=== PATIENT | male | born 1980 | race African-American/Black ===

== ENCOUNTER 2019-11-12 10:36 | Inpatient (IN) | payer SELFPAY ==
[2019-11-12] VITALS (12 sets, daily range): BP systolic 125–166; BP diastolic 64–106
[~2019-11-12] VITALS: Ht 182.9 cm; Wt 95.3 kg
--- NOTE | 2019-11-12 10:39 | NUR ---
BIBRA 58 FROM HOME, HIGH READING ON THE BS MACHINE, NON-COMPLIANT ON MEDS. TO ER BED 11, HOOKED TO [facility] [employer] DEAL[facility], NOTED TACHYCARDIC AND ELEVATED BP, CHANGED TO HOSP GOWN, PROVIDED W WARM BLANKET, PATIENT AOx4 , BREATHING EVEN AND UNLABORED. DR OLIVEIRA AAT BEDSIDE
--- NOTE | 2019-11-12 10:41 | NUR ---
ACCUCHECK AT > 600 MG/DL. MADE AWARE
[2019-11-12] MEDS ORDERED: IV NS 0.9% 1,000 ML IV PRN ×3 (10:58→14:30)
[2019-11-12] MEDS ORDERED: INSULIN ASPART/LISPRO 100 UNIT/ML CARTRIDGE SQ STA (10:58)
[2019-11-12] MEDS ORDERED: IV NS 0.9% 1,000 ML BAG IV ONE (11:00)
--- NOTE | 2019-11-12 11:04 | NUR ---
BLOOD DRAWN AND SENT TO LAB
--- NOTE | 2019-11-12 11:05 | NUR ---
CALLED NURSING CIRCUS SUPERVISOR FOR ICU BED.
[2019-11-12 11:09] LABS: BASOPHILS # (AUTO) 0.1 /CMM (0.0-0.2); BASOPHILS % (AUTO) 0.4 % (0.0-2.0); HEMATOCRIT 51 % (39-51); HEMOGLOBIN 14.9 g/dL (13.5-17.5); LYMPHOCYTES # (AUTO) 1.3 /CMM (0.8-4.8); LYMPHOCYTES % (AUTO) 8.4 % (20.0-44.0); MEAN CORPUSCULAR HGB CONC 29 g/dl (31.0-36.0); MEAN CORPUSCULAR VOLUME 86 fL (80-96); MONOCYTES # (AUTO) 1.3 /CMM (0.1-1.30); MONOCYTES % (AUTO) 8.3 % (2.0-12.0); NEUTROPHILS # (AUTO) 13.3 /CMM (1.8-8.9); NEUTROPHILS % (AUTO) 82.9 % (43.0-81.0); PLATELET COUNT (AUTO) 300 /CMM (150-450); RED BLOOD CELL COUNT(AUTO) 5.97 MIL/uL (4.5-6.0)
[2019-11-12] MEDS ORDERED: INSULIN REGULAR, HUMAN 100 UNIT/ML 10 ML VIAL ONE (11:11)
[2019-11-12] MEDS ORDERED: [UNRECOGNIZED DRUG - REMARK] SQ (11:17)
[2019-11-12] MEDS ORDERED: METF-440 PO (11:17)
[2019-11-12 11:22] LABS: ALANINE AMINOTRANSFERASE 25 U/L (12-78); ALBUMIN 4.2 g/dL (3.4-5.0); ALKALINE PHOSPHATASE 192 U/L (46-116); ASPARTATE AMINOTRANSFERASE 10 U/L (15-37); BILIRUBIN,DIRECT 0.1 mg/dL (0.0-0.2); BILIRUBIN,TOTAL 0.5 mg/dL (0.2-1.0); CHLORIDE 92 mmol/L (98-107); CREATININE 2.7 mg/dL (0.6-1.3); LIPASE 184 U/L (73-393); MAGNESIUM 2.8 mg/dL (1.8-2.4); POTASSIUM 4.9 mmol/L (3.5-5.1); SODIUM SERUM 136 mmol/L (136-145); UREA NITROGEN, BLOOD 26 mg/dL (7-18)
[2019-11-12 11:26] LABS: CARBON DIOXIDE 6 mmol/L (21-32); GLUCOSE 779 mg/dL (74-106); PHOSPHORUS 9.2 mg/dL (2.5-4.9)
[2019-11-12] MEDS ORDERED: INSULIN REGULAR, HUMAN 100 UNIT in IV NS 0.9% 99 ML IV PRN ×2 (11:30)
[2019-11-12] MEDS ORDERED: INSULIN REGULAR, HUMAN 100 UNIT/ML 10 ML VIAL SQ ONE (11:30)
--- NOTE | 2019-11-12 11:30 | NUR ---
REPORT GIVEN TO NEHEMIAH OF ICU
--- NOTE | 2019-11-12 11:31 | NUR ---
CALLED [facility], PAGED CAROLYNE CAMPOS
[2019-11-12 11:33] LABS: ABG BASE EXCESS -26.6 mmol/L; ABG OXYGEN SATURATION 97.8 % (92.0-98.5); ABG PCO2 12.8 mmHg (35.0-45.0); ABG PH 6.993 (7.350-7.450); ABG PO2 150.9 mmHg (75.0-100.0); COHb 0.2 % (0.5-1.5); MetHb 0.5 % (0.0-1.5); O2Hb 97.1 % (94.0-97.0); SITE, ABG Right Radial; VENT MODE, BG RA
--- NOTE | 2019-11-12 11:36 | NUR ---
RT AT BEDSIDE FOR ABG
[2019-11-12 11:59] LABS: APPEARANCE,URINE Clear (CLEAR); BILIRUBIN,URINE SMALL (NEGATIVE); BLOOD, URINE Moderate Ery/uL (NEGATIVE); COLOR,URINE Yellow (YELLOW); KETONES,URINE 80 (NEGATIVE); LEUKOCYTE ESTERASE ,URINE Negative (NEGATIVE); NITRITE, URINE Negative (NEGATIVE); PROTEIN,URINE 100 mg/dl (NEGATIVE); UGLUCOSE 500 MG/DL mg/dL (NEGATIVE); UROBILINOGEN,URINE 0.2 EU/dL (0.2)
[2019-11-12] MEDS ORDERED: Z GUARD REMEDY 2 OZ OINT TP PRN (12:00)
[2019-11-12] MEDS ORDERED: ONDANSETRON HCL/PF 4 MG/2 ML VIAL IVP PRN (12:00)
[2019-11-12] MEDS ORDERED: POTASSIUM CHLORIDE IV PRN (12:00)
[2019-11-12] MEDS ORDERED: LR IV PRN (12:00)
[2019-11-12 12:08] LABS: BACTERIA,URINE Few /HPF (None Seen); RBC,URINE 0-2 /HPF (0-2); SQUAMOUS EPITHELIAL CELL,UR Few /HPF (None Seen); WBC,URINE 0-2 /HPF (0-3)
[2019-11-12 12:46] LABS: EOSINOPHILS % (AUTO) 0.7 % (0.0-6.0); HEMATOCRIT 50 % (39-51); HEMOGLOBIN 14.5 g/dL (13.5-17.5); LYMPHOCYTES # (AUTO) 1.8 /CMM (0.8-4.8); LYMPHOCYTES % (AUTO) 10.3 % (20.0-44.0); MEAN CORPUSCULAR HGB CONC 29 g/dl (31.0-36.0); MEAN CORPUSCULAR VOLUME 84 fL (80-96); MONOCYTES # (AUTO) 6.4 /CMM (0.1-1.30); MONOCYTES % (AUTO) 37.2 % (2.0-12.0); NEUTROPHILS # (AUTO) 8.9 /CMM (1.8-8.9); NEUTROPHILS % (AUTO) 51.8 % (43.0-81.0); PLATELET COUNT (AUTO) 254 /CMM (150-450); RED BLOOD CELL COUNT(AUTO) 5.89 MIL/uL (4.5-6.0); WHITE BLOOD COUNT (AUTO) 17.1 K/uL (4.3-11.0)
[2019-11-12 13:00] LABS: CALCIUM, SERUM 8.9 mg/dL (8.5-10.1); CREATININE 2.3 mg/dL (0.6-1.3); MAGNESIUM 2.5 mg/dL (1.8-2.4); PHOSPHORUS 6.7 mg/dL (2.5-4.9); POTASSIUM 5.2 mmol/L (3.5-5.1)
[2019-11-12] MEDS: BLOOD SUGAR DIAGNOSTIC 1 EACH STRIP IN SCH ×10 (14:14→23:00)
[2019-11-12] MEDS ORDERED: IV NS 0.9% 1,000 ML IV ONE (14:30)
[2019-11-12] MEDS: ENOXAPARIN SODIUM 40 MG/0.4 ML DISP.SYRIN SQ SCH (14:33)
--- NOTE | 2019-11-12 14:40 | NUR ---
RN NOTE 1225: Admitted 39y/o male from ER for DKA. On insulin drip @ 9units/hr at this time. A/Ox4. With PIVs intact. On LR with 30K at 250. No N/V at this time. Verbalized feeling restless, wants ot have a rest. Skin assessment done, intact. Informed patient to remain NPO. 1300: Noted with SBP 160's, Dr. Alfaro aware, received 3L bolus in ER per report. No new order at this time. Checked BS, >600, BMP for lab glucose, 667, aware, followed insulin drip order. To use formula BG x 2 / 100. See IV spreadsheet for titration. 1430: ordered to give 2 more liters NS bolus, aware for the latest BMP result and last BG 467, on 10 U/hr insulin now.
[2019-11-12 14:56] LABS: CALCIUM, SERUM 8.8 mg/dL (8.5-10.1); CREATININE 2.1 mg/dL (0.6-1.3); MAGNESIUM 2.5 mg/dL (1.8-2.4); PHOSPHORUS 3.8 mg/dL (2.5-4.9); POTASSIUM 5.3 mmol/L (3.5-5.1)
[2019-11-12 15:47] LABS: BASOPHILS # (AUTO) 0.1 /CMM (0.0-0.2); BASOPHILS % (AUTO) 0.8 % (0.0-2.0); HEMATOCRIT 47 % (39-51); HEMOGLOBIN 14.2 g/dL (13.5-17.5); LYMPHOCYTES # (AUTO) 0.9 /CMM (0.8-4.8); LYMPHOCYTES % (AUTO) 5.4 % (20.0-44.0); MEAN CORPUSCULAR HGB CONC 30 g/dl (31.0-36.0); MEAN CORPUSCULAR VOLUME 81 fL (80-96); MONOCYTES % (AUTO) 12.5 % (2.0-12.0); NEUTROPHILS % (AUTO) 81.3 % (43.0-81.0); PLATELET COUNT (AUTO) 233 /CMM (150-450); RED BLOOD CELL COUNT(AUTO) 5.84 MIL/uL (4.5-6.0)
[2019-11-12 17:31] LABS: HEMATOCRIT 43 % (39-51); HEMOGLOBIN 13.1 g/dL (13.5-17.5); MEAN CORPUSCULAR HGB CONC 31 g/dl (31.0-36.0); WHITE BLOOD COUNT (AUTO) 13.6 K/uL (4.3-11.0)
[2019-11-12 17:39] LABS: BASOPHILS # (AUTO) 0.1 /CMM (0.0-0.2); BASOPHILS % (AUTO) 0.8 % (0.0-2.0); CREATININE 1.8 mg/dL (0.6-1.3); LYMPHOCYTES # (AUTO) 1.9 /CMM (0.8-4.8); LYMPHOCYTES % (AUTO) 14.3 % (20.0-44.0); MEAN CORPUSCULAR VOLUME 80 fL (80-96); MONOCYTES # (AUTO) 1.6 /CMM (0.1-1.30); MONOCYTES % (AUTO) 11.6 % (2.0-12.0); NEUTROPHILS # (AUTO) 9.9 /CMM (1.8-8.9); NEUTROPHILS % (AUTO) 73.3 % (43.0-81.0); PLATELET COUNT (AUTO) 207 /CMM (150-450); POTASSIUM 4.4 mmol/L (3.5-5.1); RED BLOOD CELL COUNT(AUTO) 5.37 MIL/uL (4.5-6.0)
[2019-11-12 17:45] LABS: MAGNESIUM 2.2 mg/dL (1.8-2.4); PHOSPHORUS 1.9 mg/dL (2.5-4.9)
--- NOTE | 2019-11-12 18:17 | NUR ---
RN NOTE Still on insulin drip @ 5.4 U/hr, last BG 216(using formula of BGx2.5/100), AG 29. Patient A/Ox4. No N/V. Kept clean, warm and dry. Needs attended.
[2019-11-12 18:50] LABS: BASOPHILS # (AUTO) 0.1 /CMM (0.0-0.2); BASOPHILS % (AUTO) 0.7 % (0.0-2.0); EOSINOPHILS % (AUTO) 0.1 % (0.0-6.0); LYMPHOCYTES # (AUTO) 1.8 /CMM (0.8-4.8); LYMPHOCYTES % (AUTO) 13.9 % (20.0-44.0); MEAN CORPUSCULAR HGB CONC 31 g/dl (31.0-36.0); MEAN CORPUSCULAR VOLUME 81 fL (80-96); MONOCYTES # (AUTO) 1.7 /CMM (0.1-1.30); MONOCYTES % (AUTO) 12.8 % (2.0-12.0); NEUTROPHILS # (AUTO) 9.5 /CMM (1.8-8.9); NEUTROPHILS % (AUTO) 72.5 % (43.0-81.0); PLATELET COUNT (AUTO) 198 /CMM (150-450); RED BLOOD CELL COUNT(AUTO) 5.44 MIL/uL (4.5-6.0); WHITE BLOOD COUNT (AUTO) 13.1 K/uL (4.3-11.0)
[2019-11-12 19:02] LABS: CALCIUM, SERUM 8.2 mg/dL (8.5-10.1); CREATININE 1.7 mg/dL (0.6-1.3); MAGNESIUM 2.2 mg/dL (1.8-2.4); PHOSPHORUS 1.5 mg/dL (2.5-4.9); POTASSIUM 4.2 mmol/L (3.5-5.1)
[2019-11-12] MEDS: INSULIN REGULAR, HUMAN 100 UNIT in IV NS 0.9% 99 ML IV PRN ×4 (20:02→21:08)
[2019-11-12 20:53] LABS: HEMOGLOBIN 13.4 g/dL (13.5-17.5)
[2019-11-12 20:54] LABS: HEMATOCRIT 44 % (39-51)
[2019-11-12 20:57] LABS: CALCIUM, SERUM 8.1 mg/dL (8.5-10.1); CREATININE 1.7 mg/dL (0.6-1.3); MAGNESIUM 2.1 mg/dL (1.8-2.4); POTASSIUM 4.1 mmol/L (3.5-5.1)
--- NOTE | 2019-11-12 21:00 | NUR ---
RN NOTE Still on insulin drip @ 4.1 U/hr, last BG 162(using formula of BGx2.5/100). Patient A/Ox4. No complaint of pain or discomfort. In no apparent distress. Will continue to monitor.
[2019-11-12 21:31] LABS: BASOPHILS # (AUTO) 0.1 /CMM (0.0-0.2); BASOPHILS % (AUTO) 0.6 % (0.0-2.0); HEMATOCRIT 43 % (39-51); HEMOGLOBIN 13.3 g/dL (13.5-17.5); LYMPHOCYTES # (AUTO) 1.7 /CMM (0.8-4.8); LYMPHOCYTES % (AUTO) 15.9 % (20.0-44.0); MEAN CORPUSCULAR HGB CONC 31 g/dl (31.0-36.0); MEAN CORPUSCULAR VOLUME 80 fL (80-96); MONOCYTES # (AUTO) 1.2 /CMM (0.1-1.30); MONOCYTES % (AUTO) 11.2 % (2.0-12.0); NEUTROPHILS # (AUTO) 7.8 /CMM (1.8-8.9); NEUTROPHILS % (AUTO) 72.3 % (43.0-81.0); PLATELET COUNT (AUTO) 211 /CMM (150-450); RED BLOOD CELL COUNT(AUTO) 5.32 MIL/uL (4.5-6.0); WHITE BLOOD COUNT (AUTO) 10.9 K/uL (4.3-11.0)
[2019-11-12] MEDS ORDERED: IV 1/2NS 1000 ML 1,000 ML IV SCH ×2 (22:00→22:34)
[2019-11-12] MEDS: IV D5/0.45 NACL 1,000 ML IV SCH (22:01)
[2019-11-12 23:06] LABS: BASOPHILS # (AUTO) 0.2 /CMM (0.0-0.2); BASOPHILS % (AUTO) 1.9 % (0.0-2.0); HEMATOCRIT 40 % (39-51); HEMOGLOBIN 12.4 g/dL (13.5-17.5); LYMPHOCYTES # (AUTO) 1.7 /CMM (0.8-4.8); LYMPHOCYTES % (AUTO) 17.7 % (20.0-44.0); MEAN CORPUSCULAR HGB CONC 31 g/dl (31.0-36.0); MEAN CORPUSCULAR VOLUME 79 fL (80-96); MONOCYTES % (AUTO) 11.1 % (2.0-12.0); NEUTROPHILS # (AUTO) 6.5 /CMM (1.8-8.9); NEUTROPHILS % (AUTO) 69.3 % (43.0-81.0); PLATELET COUNT (AUTO) 186 /CMM (150-450); WHITE BLOOD COUNT (AUTO) 9.4 K/uL (4.3-11.0)
[2019-11-12 23:23] LABS: CREATININE 1.6 mg/dL (0.6-1.3); MAGNESIUM 2.1 mg/dL (1.8-2.4); PHOSPHORUS 1.1 mg/dL (2.5-4.9)
--- NOTE | 2019-11-12 23:46 | NUR ---
WELL REACTIVATOR OPERATOR. PT HAS PERIPHERAL LINE K PHOS EACH BAG CONTAIN 7.5MMMOL . OVER 3HRS. PHARMACY CAN MAKE AT THIS TIME 30 MMOL. NOTIFIED . IS OK.WITH 30MMMOL.
[2019-11-12] MEDS: POTASSIUM PHOSPHATE MM 7.5 MMOL in IV D5W 100 ML IV SCH (23:53)
[2019-11-13] VITALS (24 sets, daily range): BP systolic 110–157; BP diastolic 59–89
[2019-11-13] MEDS: BLOOD SUGAR DIAGNOSTIC 1 EACH STRIP IN SCH ×18 (00:05→20:54)
[2019-11-13] MEDS: ACETAMINOPHEN 325 MG TABLET PO PRN (00:48)
[2019-11-13 01:26] LABS: BASOPHILS # (AUTO) 0.1 /CMM (0.0-0.2); BASOPHILS % (AUTO) 0.8 % (0.0-2.0); HEMATOCRIT 42 % (39-51); LYMPHOCYTES # (AUTO) 1.3 /CMM (0.8-4.8); LYMPHOCYTES % (AUTO) 16.8 % (20.0-44.0); MEAN CORPUSCULAR HGB CONC 31 g/dl (31.0-36.0); MEAN CORPUSCULAR VOLUME 79 fL (80-96); MONOCYTES # (AUTO) 0.9 /CMM (0.1-1.30); MONOCYTES % (AUTO) 11.7 % (2.0-12.0); NEUTROPHILS # (AUTO) 5.6 /CMM (1.8-8.9); NEUTROPHILS % (AUTO) 70.7 % (43.0-81.0); PLATELET COUNT (AUTO) 180 /CMM (150-450); RED BLOOD CELL COUNT(AUTO) 5.32 MIL/uL (4.5-6.0); WHITE BLOOD COUNT (AUTO) 7.9 K/uL (4.3-11.0)
[2019-11-13 01:39] LABS: CALCIUM, SERUM 8.3 mg/dL (8.5-10.1); CREATININE 1.5 mg/dL (0.6-1.3); PHOSPHORUS 1.2 mg/dL (2.5-4.9); POTASSIUM 3.7 mmol/L (3.5-5.1)
[2019-11-13] MEDS: POTASSIUM PHOSPHATE MM 7.5 MMOL in IV D5W 100 ML IV SCH ×3 (02:27→08:27)
--- NOTE | 2019-11-13 03:24 | NUR ---
REHABILITATION INSPECTOR.AM CARE, ORAL CARE, BED BATH GIVEN. LINEN CHANGED. REMAINING SAME PT IN ROOM AIR. SAT 97%. NO ACUTE DISTRESS NOTED. AEROSPACE ENGINEER OFFICER ARMAMENT SHOWING NSR, IV RT AND LT HAND 18G. IVF D5 1/2NS 125ML/H INSULIN DRIP PER ACCU CHECK RESULT TITRATING. AFEBRILE. IV K PHOS RUNNING. WILL CONTINUE TO MONITOR VITALS.
[2019-11-13 04:26] LABS: BASOPHILS # (AUTO) 0.1 /CMM (0.0-0.2); BASOPHILS % (AUTO) 1.6 % (0.0-2.0); EOSINOPHILS % (AUTO) 0.1 % (0.0-6.0); HEMATOCRIT 36 % (39-51); HEMOGLOBIN 11.5 g/dL (13.5-17.5); LYMPHOCYTES # (AUTO) 1.5 /CMM (0.8-4.8); LYMPHOCYTES % (AUTO) 20.5 % (20.0-44.0); MEAN CORPUSCULAR HGB CONC 32 g/dl (31.0-36.0); MEAN CORPUSCULAR VOLUME 78 fL (80-96); MONOCYTES # (AUTO) 0.9 /CMM (0.1-1.30); MONOCYTES % (AUTO) 11.8 % (2.0-12.0); NEUTROPHILS # (AUTO) 4.7 /CMM (1.8-8.9); PLATELET COUNT (AUTO) 166 /CMM (150-450); RED BLOOD CELL COUNT(AUTO) 4.66 MIL/uL (4.5-6.0); WHITE BLOOD COUNT (AUTO) 7.2 K/uL (4.3-11.0)
[2019-11-13 04:40] LABS: CALCIUM, SERUM 8.3 mg/dL (8.5-10.1); CREATININE 1.4 mg/dL (0.6-1.3); PHOSPHORUS 1.4 mg/dL (2.5-4.9); POTASSIUM 3.4 mmol/L (3.5-5.1)
[2019-11-13 04:48] LABS: THYROID STIMULATING HORMONE 0.867 uIU/mL (0.358-3.74)
[2019-11-13] MEDS: IV D5/0.45 NACL 1,000 ML IV SCH (07:35)
[2019-11-13 08:21] LABS: CALCIUM, SERUM 8.3 mg/dL (8.5-10.1); CREATININE 1.4 mg/dL (0.6-1.3); POTASSIUM 3.4 mmol/L (3.5-5.1)
[2019-11-13] MEDS: ENOXAPARIN SODIUM 40 MG/0.4 ML DISP.SYRIN SQ SCH (08:21)
[2019-11-13 09:14] LABS: PHOSPHORUS 1.8 mg/dL (2.5-4.9)
[2019-11-13 09:45] LABS: ABG BASE EXCESS -5.8 mmol/L; ABG OXYGEN SATURATION 97.6 % (92.0-98.5); ABG PH 7.346 (7.350-7.450); AaDO2 7.6 mmHg; MetHb 0.2 % (0.0-1.5); O2Hb 96.4 % (94.0-97.0); SITE, ABG Right Radial; VENT MODE, BG ROOM AIR
--- NOTE | 2019-11-13 10:16 | NUR ---
RN NOTE 0715: Received patient resting in bed. A/Ox4. With 2 PIVs intact. On insulin drip, monitored BG q1hr, see IV spreadsheet. Using formula of BGx2.5/100. 0800: Started D5 1/2 NS @ 125 per previous shift. 0930: Updated MD re: BMP ans BG, patient asking for diet order but per MD, waiting for Anion gap to close. Latest is 17. Informed patient. 1015: No any significant changes.
[2019-11-13 11:35] LABS: CALCIUM, SERUM 8.6 mg/dL (8.5-10.1); CREATININE 1.4 mg/dL (0.6-1.3); POTASSIUM 3.1 mmol/L (3.5-5.1)
[2019-11-13] MEDS ORDERED: IV D5/0.45 NACL 1,000 ML IV PRN (14:30)
[2019-11-13 14:34] LABS: CALCIUM, SERUM 8.7 mg/dL (8.5-10.1); CREATININE 1.4 mg/dL (0.6-1.3); PHOSPHORUS 1.1 mg/dL (2.5-4.9); POTASSIUM 3.6 mmol/L (3.5-5.1)
--- NOTE | 2019-11-13 15:36 | NUR ---
RN NOTE Updated MD for last BMP, Phos 101, BG 225, on insulin drip 5.6u/hr, AG 16, CO2 19, with new order to give 2tabs Kphos PO x1. Patient aware for the POC. Addendum: 11/13/19 at 1722 by NEHEMIAH HILLIARD RN phos 1.1
[2019-11-13] MEDS ORDERED: INSULIN GLARGINE, 100 UNIT/ML CARTRIDGE SQ ONE (16:00)
[2019-11-13] MEDS ORDERED: K PHOS NEUTRAL 250 MG TABLET PO ONE (16:00)
[2019-11-13] MEDS ORDERED: *INSULIN REGULAR(HUMULIN R)HUM 100 UNIT/ML VIAL SQ PRN (16:00)
[2019-11-13] MEDS ORDERED: DEXTROSE 50%-WATER 50 ML DISP.SYRIN IV PRN ×3 (16:00→23:00)
[2019-11-13] MEDS ORDERED: INSULIN REGULAR, HUMAN 100 UNIT/ML 3 ML VIAL SQ PRN (16:00)
[2019-11-13] MEDS: INSULIN REGULAR, HUMAN 100 UNIT/ML 3 ML VIAL SQ PRN ×2 (16:58→20:56)
[2019-11-13] MEDS: INSULIN LISPRO/ASPART 100 UNIT/ML CARTRIDGE SQ SCH (16:58)
--- NOTE | 2019-11-13 17:22 | NUR ---
RN NOTE 1545: Obtained order to DC insulin drip, changed to moderate accucheck q4, given 20u Lantus x1 and 5u aspart ac. Patient aware for the POC. 1715: No any significant changes noted. Eating dinner, tolerated diet.
[2019-11-13] MEDS ORDERED: BLOOD SUGAR DIAGNOSTIC 1 EACH STRIP VI SCH (17:30)
--- NOTE | 2019-11-13 19:35 | NUR ---
RN NOTES RECEIVED PATIENT ASLEEP WELL ON BED . DX WITH DKA. BREATHING EVEN AND UNLABORED IN ROOM AIR. AFEBRILE. NO COMPLAIN OF PAIN. NSR WITH BBB ON TELE MONITOR. PT. IS AOX4 VERBALIZED UNDERSTANDING OF CARE. IV SITE ON RAC AND LAC SL CONTINUE TO MONITOR BS ORDERED. OFF FROM INSULIN DRIP THIS AFTERNOON AT 1545 PM. INSULIN PER SLIDING SCALE WILL BE GIVEN ORDERED. PT IS ABLE TO MOVE ON BED INDEPENDENTLY. KEPT PT CLEAN AND DRY. WILL CLOSELY MONITOR.
[2019-11-13 20:20] LABS: CALCIUM, SERUM 8.2 mg/dL (8.5-10.1); CREATININE 1.4 mg/dL (0.6-1.3); MAGNESIUM 1.8 mg/dL (1.8-2.4); POTASSIUM 3.6 mmol/L (3.5-5.1)
--- NOTE | 2019-11-13 21:00 | NUR ---
RN NOTES CALLED DR. ALVES TO GIVE REPORT REGARDING CRITICAL VALUE OF GLUCOS 373 AND MANUAL BS CHECK 372 MG/DL WAITING FOR THE CALL BACK.
--- NOTE | 2019-11-13 22:47 | NUR ---
RN NOTES DR. ALVES CALLED BACK AND INFORMED REGARDING THE GLUCOSE CRITICAL LEVEL AND UPDATED ABOUT ORDERS. WITH NEW ORDER TO GIVE LANTUS 20 U' ONCE AND CHANGE THE SLIDING SCALE TO AGGRESSIVE. NOTED AND ACKNOWLEDGE ORDERS.
[2019-11-13] MEDS ORDERED: INSULIN GLARGINE, 100 UNIT/ML CARTRIDGE SQ SCH (23:00)
--- NOTE | 2019-11-13 23:20 | NUR ---
RN NOTES DR. JORDAN CAME ON THE FLOOR VISITED PATIENT WITH NEW ORDER OK TO TRANSFER TO [facility].
[2019-11-14] VITALS: BP 127/63
[2019-11-14 01:00] VITALS: BP 143/73
[2019-11-14] MEDS: BLOOD SUGAR DIAGNOSTIC 1 EACH STRIP IN SCH ×5 (01:37→16:57)
[2019-11-14] MEDS: INSULIN REGULAR, HUMAN 100 UNIT/ML 3 ML VIAL SQ PRN ×3 (01:39→11:06)
[2019-11-14] MEDS: ACETAMINOPHEN 325 MG TABLET PO PRN (01:39)
[2019-11-14 02:00] VITALS: BP 139/85
[2019-11-14 03:00] VITALS: BP 146/85
--- NOTE | 2019-11-14 03:15 | NUR ---
MS FORM BUILDER NOTES RECEIVED PT IN BED AWAKE AND ABLE TO MAKE NEEDS KNOWN IN STABLE CONDITION FROM ICU. PT A/O X3. PT NOTED WITH DX OF DKA. BREATHING EVEN AND UNLABORED WITH NO S/S OF ACUTE DISTRESS OR SOB NOTED. NO COMPLAINTS OF PAIN AT THIS TIME. PT NOTED WITH IV SITE ON LAC PATENT AND INTACT AND SL. SAFETY MEASURES IN PLACE WITH BED IN LOWEST LOCKED POSITION WITH SIDE RAILS UP X2. CALL LIGHT WITHIN REACH. WILL CONTINUE TO MONITOR.
[2019-11-14 03:20] VITALS: BP 131/79
--- NOTE | 2019-11-14 03:21 | NUR ---
RN NOTES PATIENT TRANSFERRED TO 203 ON MED SURG STATUS. PATIENT IS ON STABLE CONDITION.
--- NOTE | 2019-11-14 06:44 | NUR ---
MS RN NOTES PT IN ASLEEP BUT EASILY AWOKEN VERBALLY OR BY TOUCH. PT A/O X3 AND ABLE TO MAKE NEEDS KNOWN. BREATHING EVEN AND UNLABORED WITH NO S/S OF ACUTE DISTRESS OR SOB NOTED THROUGHOUT SHIFT. NO COMPLAINTS OF PAIN AT THIS TIME. PT NOTED WITH IV SITE ON LAC PATENT AND INTACT AND SL. SAFETY MEASURES IN PLACE WITH BED IN LOWEST LOCKED POSITION WITH SIDE RAILS UP X2. CALL LIGHT WITHIN REACH. WILL ENDORSE TO ONCOMING NURSE FOR MAGALYS.
[2019-11-14 07:02] LABS: CALCIUM, SERUM 8.1 mg/dL (8.5-10.1); CREATININE 1.1 mg/dL (0.6-1.3); PHOSPHORUS 1.5 mg/dL (2.5-4.9); POTASSIUM 3.5 mmol/L (3.5-5.1)
[2019-11-14] MEDS: INSULIN LISPRO/ASPART 100 UNIT/ML CARTRIDGE SQ SCH ×3 (07:56→17:01)
[2019-11-14 08:00] VITALS: BP 129/87
[2019-11-14 08:07] LABS: BASOPHILS % (AUTO) 0.9 % (0.0-2.0); EOSINOPHILS % (AUTO) 0.6 % (0.0-6.0); HEMATOCRIT 34 % (39-51); LYMPHOCYTES # (AUTO) 1.5 /CMM (0.8-4.8); LYMPHOCYTES % (AUTO) 32.1 % (20.0-44.0); MEAN CORPUSCULAR HGB CONC 32 g/dl (31.0-36.0); MEAN CORPUSCULAR VOLUME 77 fL (80-96); MONOCYTES # (AUTO) 0.5 /CMM (0.1-1.30); MONOCYTES % (AUTO) 11.1 % (2.0-12.0); NEUTROPHILS # (AUTO) 2.6 /CMM (1.8-8.9); NEUTROPHILS % (AUTO) 55.3 % (43.0-81.0); PLATELET COUNT (AUTO) 141 /CMM (150-450); RED BLOOD CELL COUNT(AUTO) 4.42 MIL/uL (4.5-6.0); WHITE BLOOD COUNT (AUTO) 4.7 K/uL (4.3-11.0)
[2019-11-14] MEDS: ENOXAPARIN SODIUM 40 MG/0.4 ML DISP.SYRIN SQ SCH (09:00)
[2019-11-14] MEDS ORDERED: K PHOS NEUTRAL 250 MG TABLET PO ONE (11:00)
[2019-11-14] MEDS ORDERED: INSU100V7 SQ (13:38)
[2019-11-14] MEDS ORDERED: INSU100C10 SQ (13:38)
[2019-11-14] MEDS ORDERED: SYRI1DIS86 MC (13:38)
--- NOTE | 2019-11-14 18:10 | NUR ---
Patient cleared for D/C to home by MD. PAtient awake alert and oriented x4, ambulatory, breathing unlabored and even, VS are stable on room air. Discharge education and teaching provided to patient;patient verbalized understanding. Patient's prescription sent to preferred pharmacy, patient informed. All needs attended. Patient has no skin issues. IV line removed and ID wrist band removed. PAtient sighed valuable form and all belongings with the patient. Patient safely [facility] accompanied by friend and RN
== END 2019-11-14 18:10 | disposition home or self-care (01) | DRG 682 ==
LOC: ER 10:38 → ICU 11:22 → MEDSG2 11-14 03:11
PROVIDERS: ADMIT Nurse Practitioner Acute Care; ATTEND Nurse Practitioner Acute Care
DX: N17.0 Acute kidney failure with tubular necrosis (principal); E10.10 Type 1 diabetes mellitus with ketoacidosis without coma; E86.1 Hypovolemia; E83.39 Other disorders of phosphorus metabolism; D50.9 Iron deficiency anemia, unspecified; E86.0 Dehydration; I10 Essential (primary) hypertension; E87.6 Hypokalemia; Z79.4 Long term (current) use of insulin; Z79.84 Long term (current) use of oral hypoglycemic drugs
CPT/HCPCS: 36415; 36600; 71045-TC; 80048-TC; 80061-TC; 80076-TC; 81000-TC; 82962-TC; 83690-TC; 83735-TC; 84100-TC; 84443-TC; 84484-TC; 85025-TC; 87081-TC; 93307-TC; G0378; J1650; J1815; J3480; J3490; J7030; J7060; J7120